=== PATIENT | male | born 1965 | race American Indian/Alaskan Native ===

== ENCOUNTER 2021-03-09 15:30 | Outpatient (RCR) | payer OTHER, SELFPAY ==
[2021-01-05 15:00] VITALS: BP_SYST 115
--- NOTE | 2021-01-05 15:54 | PTOPEVAL ---
PHYSICAL THERAPY EVALUATION AND PLAN OF CARE 01-06-21 Thank you for referring Imtiaz Pate to [facility] for the diagnosis of R shoulder adhesive capsulitis.? He is scheduled to be seen for therapy? 2 x/week for 4 weeks. Please review, sign, date and return this plan of care YEHUDA. I agree with and certify that the following plan of care is medically necessary. Referring Physician Date Attending Provider: Nuria Roberson NP PT Outpatient Evaluation Document 01/05/21 15:00 JOLLY (Rec: 01/05/21 15:54 JOLLY [id number]) Outpatient Past Medical History Past Medical History Source of Past Medical History Patient Neurological History Hx Neurological Disorders No Significant History Cardiovascular History Hx Hypertension Yes: meds Respiratory History Hx COVID-19 Yes: Oct 2019- fever and light symptoms, had vaccine Gastrointestinal History Hx Gastrointestinal Disorders No Significant History Genitourinary History Hx Genitourinary Disorders No Significant History Musculoskeletal History Hx Other Musculoskeletal Disorders Yes: neck pain, R and L shoulder pain Endocrine History Hx Diabetes Yes: meds control HEENT History Hx Other HEENT Disorders Yes: wear glasses; to have stretching of esophagus next week Psychosocial History Hx Anxiety Yes: claustrophobia Evaluation Information Problem Diagnosis R shoulder adhesive capsulitis Onset few years Subjective Information fell about 2-3 years ago, off Query Text:As Reported By Patient/ scooter. 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
--- NOTE | 2021-01-12 15:44 | PCPTNOTE ---
Patient called & cancelled scheduled appointment this date due to being out of town.
[2021-02-02 15:00] VITALS: BP_SYST 90
--- NOTE | 2021-02-02 15:50 | PTOPEVAL ---
PHYSICAL THERAPY RE-EVALUATION AND UPDATED PLAN OF CARE 02-02-21 Refer to the clinical summary below, for the status today, compared to the initial evaluation. He has made improvements, and PT will continue 2x/week for 4 weeks. Please review, sign, date and return this updated plan of care YEHUDA. I agree with and certify that the following plan of care is medically necessary. Referring Physician Date Attending Provider: Nuria Roberson NP Document 02/02/21 15:00 JOLLY (Rec: 02/02/21 15:46 JOLLY [id number]) Assessment Status Re-evaluation Subjective Information Gerson reports: my range is Query Text:As Reported By Patient/ better, still not where need Family to be; playing golf; reaching back with showering still not all way behind back; doing exercises at home OK; Pain Assessment Timing of Pain Assessment Timing of Pain Assessment Assessment Pain Scale Pain Scale Used Numeric (1 - 10) Self Report Pain Assessment Right Shoulder(s) Reported Pain Level 0 Pain Description Sharp,Soreness,Tightness Pain Frequency Chronic,Intermittent Other Pain Description tight in shoulder-posterior shoulder Lowest Pain Intensity 0 Greatest Pain Intensity 7 Other Pain Aggravating Factors pulling in back of shoulder when playing tug-war with dog- no other pain Pain Score Pain Score 0: Self Report Additional Pain Score Comments Quick DASH self assessment functional score of 9% limitation Interventions Used Interventions Used By Clinicians Exercise Pain Relief Interventions Used By Inactivity/Rest Patient Upper Extremity Range of Motion Scapular/ Shoulder Range of Motion Right Shoulder Flexion - Active 135 Shoulder Flexion - Passive 145 Shoulder Abduction - Active 85 Shoulder Abduction - Passive 90 Shoulder Medial Rotation - Active palm to above waist Query Text:Reach Behind the Back Shoulder Lateral Rotation - Active palm to posterior neck Query Text:Reach Behind the Head Scapular/Shoulder Range of Motion increase pain with IR > Comments abduction; reports tightness post scapula with horizontal adduction stretch with R arm across body no pain with elbow flex/ extension Upper Extremity Muscle Strength Testing General Upper Extremity Strength Gross Upper Extremity Strength Comments functional strength testing R UE:
--- NOTE | 2021-03-09 16:04 | PTOPEVAL ---
PHYSICAL THERAPY DISCHARGE 03-09-21 Refer to the clinical summary below, for his status today, compared to the last reevaluation. The goals were achieved except the active ROM of R shoulder flexion and IR motions. He is to continue with his home exercise program and increase the activity level with his R UE. Thank you for referring Imtiaz Pate to [facility].? Please review, sign, date and return this Discharge YEHUDA. I agree with and certify that the following plan of care is medically necessary. Referring Physician Date Attending Provider: Nuria Roberson NP Document 03/09/21 15:25 JOLLY (Rec: 03/09/21 16:04 JOLLY [id number]) Assessment Status Discharge Subjective Information Gerson reports: have more range Query Text:As Reported By Patient/ of motion of his shoulder, Family still problems with reaching behind back; have been doing exercises without any problems ; have not tried throwing a ball yet; agree to d/c PT; Pain Assessment Timing of Pain Assessment Timing of Pain Assessment Assessment Pain Scale Pain Scale Used Numeric (1 - 10) Self Report Pain Assessment Right Shoulder(s) Reported Pain Level 0 Pain Description Dull Pain Frequency Chronic,Intermittent Other Pain Description posterior GH joint Lowest Pain Intensity 0 Greatest Pain Intensity 2 Other Pain Aggravating Factors shoulder abduction Pain Score Pain Score 0: Self Report Upper Extremity Range of Motion Scapular/ Shoulder Range of Motion Right Shoulder Flexion - Active 140 Shoulder Abduction - Active 140 Shoulder Medial Rotation - Active palm to above waist Query Text:Reach Behind the Back Shoulder Lateral Rotation - Active palm to back of neck Query Text:Reach Behind the Head Scapular/Shoulder Range of Motion passive stretch to R shoulder Comments in side lying with scapular mobilization and shoulder circles/sweeping; in supine distraction of GH and IR stretch, after stretching, able to perform IR with palm ~ 2 palm widths above waist Upper Extremity Muscle Strength Testing General Upper Extremity Strength Gross Upper Extremity Strength Comments standing R UE functional strength: shoulder flexion to 140' with 4# hand wt x 10 reps shoulder abduction to 140' with 4# hand wt x 10 reps elbow 10# flexion/extension x
== END 2021-03-10 14:01 | disposition home or self-care (01) ==
LOC: ANHPT 15:30
PROVIDERS: PCP Family Medicine; Visit Provider Nurse Practitioner Family
DX: M75.01 Adhesive capsulitis of right shoulder (principal)
CPT/HCPCS: 97014; 97110; 97140; 97161; G0283

== ENCOUNTER 2023-07-20 03:14 | Day surgery (SDC) | payer OTHER, SELFPAY ==
[2023-07-05 10:08] VITALS: BMI 26.7
[2023-07-20 06:25] VITALS: BP 136/82; PULSE 104; RESP 20; TEMP 36; O2SAT 100
[2023-07-20] MEDS: LACTATED RINGERS 1,000 ML 150 ML IV CONT (06:36)
[2023-07-20 06:54] LABS: Glucose Point of Care 141 mg/dl (65-105)
--- NOTE | 2023-07-20 07:09 | WPDANESEPPF ---
Anes - Initial Pre Proc Eval Procedure: Operation Date: 07/20/23 07:30 Proposed Procedures p Esophagogastroduodenoscopy & Colonoscopy - Karl Balderas MD Date/Time: 07/20/23 07:09 Surgeon: Karl Balderas MD Pre Op Diagnosis: GERD,Anemia,Neoplasm screening Patient Data Age: 57 Gender: M Height: 1.8 m Weight: 84.5 kg Last Vital Signs Temp 96.8 F L 07/20/23 06:25 Pulse 104 H 07/20/23 06:25 Resp 20 07/20/23 06:25 BP 136/82 07/20/23 06:25 Pulse Ox 100 07/20/23 06:25 O2 Del Method Room Air 07/20/23 06:25 Allergies Allergy/AdvReac Type Severity Reaction Status Date / Time No Known Allergies Allergy Verified 07/20/23 06:24 Home Medications Medication Instructions Recorded Confirmed Type blood-glucose meter (Blood Glucose #1 ea 12/21/20 01/29/23 Rx Monitoring kit) blood sugar diagnostic (OneTouch #100 ea 12/22/20 01/29/23 Rx Ultra Test strips) lancets (OneTouch UltraSoft #100 ea 12/22/20 01/29/23 Rx Lancets) aspirin 81 mg tablet,delayed 81 mg PO DAILY #90 tabs 07/17/22 07/05/23 Rx release (Enteric Coated Aspirin) empagliflozin 25 mg tablet 25 mg PO DAILY #90 tabs 12/08/22 07/05/23 Rx (Jardiance) pantoprazole 40 mg tablet,delayed 40 mg PO DAILY 01/29/23 07/05/23 History release metformin 500 mg tablet,extended 2,000 mg PO QPM #360 tabs 04/03/23 07/05/23 Rx release 24 hr cholecalciferol (vitamin D3) 1,250 1,250 mcg PO WEEKLY #12 tabs 05/09/23 07/05/23 Rx mcg (50,000 unit) tablet atorvastatin 20 mg tablet 20 mg PO QHS #90 tabs 05/15/23 07/05/23 Rx lisinopril 20 mg tablet 20 mg PO DAILY #90 tabs 06/14/23 07/05/23 Rx glipizide 5 mg tablet 5 mg PO BID 07/05/23 07/05/23 History multivit with minerals-iron 18 1 tablet PO 07/05/23 History mg-folic ac 400 mcg-vit K 25 mcg tablet (Adults Multivitamin) lorazepam 0.5 mg tablet 0.5 mg PO DAILY PRN anxiety #20 07/09/23 07/20/23 Rx tabs Laboratory Tests 07/20/23 06:21 POC Capillary Glucose 141 H mg/dl (65-105) Patient hx anesthesia problems: none Family hx anesthesia problems: none Results Review: All pre-operative results and documents have been reviewed as part of the pre-operative evaluation. [facility] Past Medical History Medical History Anxiety Essential (primary) hypertension GERD without esophagitis Hyperlipidemia Panic disorder/agoraphobia, agoraphobic avoidnc/panc attck full remssn Sleep apnea Type 2 diabetes mellitus without complications Surgical History Surgical History History of esophageal dilatation (~04/2020) Family History Family History Father Cerebrovascular accident Other Diabetes mellitus Hypertension Social History Social History Smoking status: Never smoker Second hand tobacco smoke exposure: No Alcohol intake: current Alcohol use details: socially maybe 2 times a year Substance use: never Substance use type: does not use Lack of Transportation: No Lack of Food: Never True Current Housing: I Have Housing Concerned About Future Housing: No Difficulty Paying Gas/Electric Bills: No Difficulty Paying for Meds: No Currently Unemployed: No Education: High School Diploma/GED Difficulty w/ Childcare or Family Care: No Living arrangements: with family Occupation/Education: occupation Additional occupation/education comments: sales Gender identity (if verbalized by the patient): Male Sexual Orientation (if Verbalized by the Patient): Straight or Heterosexual Spiritual care concerns: No Agree to blood products: Yes Anes - Eval Final PreProcedure Day of Procedure 07/20/23 07:09 Patient weight: normal Heart: regular rate and rhythm Lungs: clear to ausculta
--- NOTE | 2023-07-20 07:32 | PM.HPGS ---
History of Present Illness History of Present Illness Consent: Risks, benefits, and alternatives have been discussed and questions answered. Patient agrees to proceed with procedure. Chief complaint: GERD,Anemia,Neoplasm screening Narrative: Imtiaz Pate is a 57 year old male with anemia hgb 9, denies overt gib, never had scopes, using pantoprazole Review of Systems Review of Systems: All systems reviewed & are unremarkable except as noted in HPI and below PMFSH Past Medical History Medical History Anxiety Essential (primary) hypertension GERD without esophagitis Hyperlipidemia Panic disorder/agoraphobia, agoraphobic avoidnc/panc attck full remssn Sleep apnea Type 2 diabetes mellitus without complications Surgical History Surgical History History of esophageal dilatation (~04/2020) Family History Family History Father Cerebrovascular accident Other Diabetes mellitus Hypertension Social History Social History Smoking status: Never smoker Second hand tobacco smoke exposure: No Alcohol intake: current Alcohol use details: socially maybe 2 times a year Substance use: never Substance use type: does not use Lack of Transportation: No Lack of Food: Never True Current Housing: I Have Housing Concerned About Future Housing: No Difficulty Paying Gas/Electric Bills: No Difficulty Paying for Meds: No Currently Unemployed: No Education: High School Diploma/GED Difficulty w/ Childcare or Family Care: No Living arrangements: with family Occupation/Education: occupation Additional occupation/education comments: sales Gender identity (if verbalized by the patient): Male Sexual Orientation (if Verbalized by the Patient): Straight or Heterosexual Spiritual care concerns: No Agree to blood products: Yes Meds Home Medications and Allergies Home Medications Medication Instructions Recorded Confirmed Type blood-glucose meter (Blood Glucose #1 ea 12/21/20 01/29/23 Rx Monitoring kit) blood sugar diagnostic (OneTouch #100 ea 12/22/20 01/29/23 Rx Ultra Test strips) lancets (OneTouch UltraSoft #100 ea 12/22/20 01/29/23 Rx Lancets) aspirin 81 mg tablet,delayed 81 mg PO DAILY #90 tabs 07/17/22 07/05/23 Rx release (Enteric Coated Aspirin) empagliflozin 25 mg tablet 25 mg PO DAILY #90 tabs 12/08/22 07/05/23 Rx (Jardiance) pantoprazole 40 mg tablet,delayed 40 mg PO DAILY 01/29/23 07/05/23 History release metformin 500 mg tablet,extended 2,000 mg PO QPM #360 tabs 04/03/23 07/05/23 Rx release 24 hr cholecalciferol (vitamin D3) 1,250 1,250 mcg PO WEEKLY #12 tabs 05/09/23 07/05/23 Rx mcg (50,000 unit) tablet atorvastatin 20 mg tablet 20 mg PO QHS #90 tabs 05/15/23 07/05/23 Rx lisinopril 20 mg tablet 20 mg PO DAILY #90 tabs 06/14/23 07/05/23 Rx glipizide 5 mg tablet 5 mg PO BID 07/05/23 07/05/23 History multivit with minerals-iron 18 1 tablet PO 07/05/23 History mg-folic ac 400 mcg-vit K 25 mcg tablet (Adults Multivitamin) lorazepam 0.5 mg tablet 0.5 mg PO DAILY PRN anxiety #20 07/09/23 07/20/23 Rx tabs Allergies Allergy/AdvReac Type Severity Reaction Status Date / Time No Known Allergies Allergy Verified 07/20/23 06:24 Vital Signs Vital Signs - 24 hr 07/20/23 06:25 Temperature 96.8 F L Pulse Rate 104 H Respiratory Rate 20 Blood Pressure 136/82 Pulse Oximetry 100 Oxygen Delivery Room Air Exam Const: General: comfortable and no acute distress HENMT: Face/Nose/Sinus: Normal nares present Eyes: General: appearance normal, both eyes and all related structures Neck: Neck: no JVD Resp: Auscultation: clear to auscultation bilaterally Cardio: Rate: regular rate Rhythm: regular rhythm GI:
[2023-07-20 08:00] VITALS: BP 99/70; PULSE 93; RESP 15; O2SAT 98
--- NOTE | 2023-07-20 08:00 | SUR.OPER ---
EGD: Start 07:35, End 07:40 Colonoscopy: Start 07:47, End 07:57
[2023-07-20 08:10] VITALS: BP 107/77; PULSE 75; RESP 13; O2SAT 100
[2023-07-20 08:20] VITALS: BP 114/82; PULSE 74; RESP 19; O2SAT 100
[2023-07-20 08:30] VITALS: BP 114/82; PULSE 79; RESP 18; O2SAT 100
[2023-07-20 08:40] VITALS: BP 118/81; PULSE 75; RESP 14; O2SAT 100
== END 2023-07-20 08:43 | disposition home or self-care (01) ==
PROVIDERS: PCP Family Medicine; Visit Provider Internal Medicine Gastroenterology
PROC: 0DJ08ZZ Inspection of Upper Intestinal Tract, Via Natural or Artificial Opening Endoscopic (ICD-10-PCS; CPT 43235; principal; 2023-07-20 07:30)
DX: D50.9 Iron deficiency anemia, unspecified (principal); D12.0 Benign neoplasm of cecum; K64.8 Other hemorrhoids; K29.50 Unspecified chronic gastritis without bleeding; K44.9 Diaphragmatic hernia without obstruction or gangrene; I10 Essential (primary) hypertension; K21.9 Gastro-esophageal reflux disease without esophagitis; E78.5 Hyperlipidemia, unspecified; E11.9 Type 2 diabetes mellitus without complications; G47.30 Sleep apnea, unspecified; F41.9 Anxiety disorder, unspecified; Z79.84 Long term (current) use of oral hypoglycemic drugs; Z79.82 Long term (current) use of aspirin
CPT/HCPCS: 45380; 43239; 82948; 88305; J2704; J7120

== ENCOUNTER 2023-07-27 08:20 | Outpatient (CLI) | payer OTHER, SELFPAY ==
--- NOTE | ~2023-07-27 | CT_ITS ---
CT of the Abdomen and Pelvis: Indication: Other specified disease of intestine Technique: 2.5 mm axial scans were obtained through the abdomen and pelvis following intravenous adm inistration of 100 cc of Omnipaque 350. Dose reduction technique was used on this scan by utilizing a utomated exposure control and iterative reconstruction technique. The dose-length product (DLP) was 6 69.38 mGy-cm. Findings: Scans through the lung bases are unremarkable. The liver, spleen, pancreas, gallbladder, left adrenal gland and kidneys are within normal limits. 1. 4 cm right adrenal nodule present. There are atherosclerotic calcifications of the aorta. No lymphad enopathy. No bowel obstruction or bowel wall thickening. There is no evidence to suggest acute appendicitis. Images through the pelvis were performed. Urinary bladder unremarkable. No pelvic mass seen. No ascit es. Impression: No acute abnormality evident. No GI abnormality evident. 1.4 cm right adrenal nodule, indeterminate. Consider adrenal protocol CT or MR to attempt to confirm adenoma. Reviewed, dictated and finalized at [facility]. Impression: No acute abnormality evident. No GI abnormality evident. 1.4 cm right adrenal nodule, indeterminate. Consider adrenal protocol CT or MR to attempt to confirm adenoma.
[2023-07-27 08:52] LABS: Estimated Glomerular Filt Rate > 60
[2023-07-27 09:39] LABS: Hematocrit 36.9 % (42.0-52.0); Mean Corpuscular HGB Conc 27.1 g/dl (32-36); Mean Corpuscular Hemoglobin 18.1 pg (26-34); Mean Corpuscular Volume 66.7 fl (80-100); Mean Platelet Volume 8.8 fl (7.4-10.4); Platelet Count Result 329 k/mm3 (150-375); Red Blood Count 5.53 M/mm3 (4.6-6.20); Red Cell Distribution Width 23.8 % (11.5-14.5); White Blood Count 4.3 K/mm3 (4.5-10.0)
[2023-07-27 09:49] LABS: Alanine Aminotransferase 19 U/L (6-50); Albumin Level 4.4 g/dL (3.5-5.1); Alkaline Phosphatase 86 U/L (38-126); Anion Gap 10 mmol/L (4-12); Aspartate Amino Transferase 23 U/L (17-59); Bilirubin,Total 0.9 mg/dL (0.2-1.3); Blood Urea Nitrogen 15 mg/dL (9-20); Calcium 9.4 mg/dL (8.4-10.2); Carbon Dioxide 23 mmol/L (22-30); Chloride 107 mmol/L (98-107); Estimated Glomerular Filt Rate > 60; Glucose 107 mg/dL (65-110); Potassium 4.6 mmol/L (3.4-5.0); Sodium 140 mmol/L (137-145)
[2023-07-27 10:19] LABS: Carcinoembryonic Antigen 1.1 ng/mL (0.0-3.0)
== END 2023-07-27 08:21 | disposition home or self-care (01) ==
PROVIDERS: PCP Family Medicine; Visit Provider Internal Medicine Gastroenterology
DX: K63.89 Other specified diseases of intestine (principal); D64.9 Anemia, unspecified; D35.01 Benign neoplasm of right adrenal gland
CPT/HCPCS: 36415; 74177; 80053; 82378; 85027; Q9967

== ENCOUNTER 2024-08-19 09:26 | Outpatient (CLI) | payer OTHER, SELFPAY ==
--- OUTSIDE RECORDS SUMMARY | 2024-08-19 09:44 | XMS_ITS | Clinical Summary ---
Author Organization [facility] Address [address] [place] [address] Care Team Providers Care Regional Engagement Consultant Name Role Phone Akiko Deras MD Primary Care Provider Raymundo Morgan MD Unavailable [phone] Karl Gabriel MD Unavailable + Allergies No known active allergies Medications LORazepam (ATIVAN) 0.5 mg tablet [address] (PROTONIX) 40 mg EC tablet Take 1 tablet (40 mg total) by mouth daily Active lisinopriL (PRINIVIL,ZESTR IL) 20 mg tablet Take 1 tablet (20 mg total) by mouth daily Active cholecalciferol (VITAMIN D-3) 50,000 unit capsule Take 1 capsule (50,000 Units total) by mouth once a week Active aspirin 81 mg enteric coated tablet Take 1 tablet (81 mg total) by mouth daily Active atorvastatin (LIPITOR) 20 mg tablet Take 1 tablet (20 mg total) by mouth daily Active glipiZIDE (GLUCOTROL) 10 mg tabletIndicatio ns:type 2 diabetes mellitus Take 1 tablet (10 mg total) by mouth 2 (two) times a day before breakfast and lunch Active metFORMIN (FORTAMET) 500 mg 24 hr tablet Take 4 tablets (2,000 mg total) by mouth daily with breakfast Active Jardiance 25 mg tablet 4 Active Active Problems Problem Noted Date Diagnosed Date S/P colonoscopy with polypectomy 04/16/2024 Encounters Date Type Department Care Team Description 06/04/2024 Results Follow-Up [facility] Gastroenterology [address] [facility] [address], [address] [place] [address] Stacey Hagen RN Surgical pathology 06/02/2024 7:00 AM CDT - 06/02/2024 7:45 AM CDT Surgery [facility] [address] [place] [phone] Preet Huertas MD ENDO ADD ON COLON REMOVAL HOT BIOPSY 06/02/2024 7:00 AM CDT Anesthesia Event [facility] [address] [place] [phone] Jose Hinds MD 06/02/2024 6:15 AM CDT - 06/02/2024 8:17 AM CDT Hospital Encounter [facility] [address] [place] [address] Preet Huertas MD S/P colonoscopy with polypectomy Discharge Disposition: Discharge to home or self care 05/30/2024 Telephone [facility] Gastroenterology [address] [facility] [address], [address] [place] [address] Stacey Hagen RN Return call from Last 3 Months Surgical History Surgery Date Site/Laterality Comments COLONOSCOPY 07/18/2023 - 08/17/2023 UPPER GASTROINTESTINAL ENDOSCOPY 07/18/2023 - 08/17/2023 Medical History Medical History Date Comments Diabetes mellitus (HCC) Hypertension Anxiety Cecal polyp 07/20/2023 RITCHIE (iron deficiency anemia) Sleep apnea Social History Tobacco Use Types Packs/Day Years Used Date Smoking Tobacco: Never Tobacco Cessation:Counseling Given: Not Answered AUDIT-C Answer Date Recorded Q1: How often do you have a drink containing alcohol? Never 06/02/2024 Q2: How many drinks containi ng alcohol do you have on a typical day when you are drinking? Patient does not drink Q3: How often do you have si x or more drinks on one occasion? Never 06/02/2024 Personal Safety Answer Date Recorded Have you ever been in or are you currently in a harmful physical or emotional relationship or is someone making you feel afraid or unsafe? 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 Gender Identity Not on file Sexual Orientation Not on file Obstetrics History Last Filed Vital Signs Vital Sign Reading Time Taken Comments Blood Pressure 111/87 06/02/2024 7:54 AM CDT Pulse 82 06/02/2024 7:54 AM CDT Temperature 36.1 C (97 F) 06/02/2024 6:47 AM CDT Respiratory Rate 13 06/02/2024 7:54 AM CDT Oxygen Saturation 100% 06/02/2024 7:54 AM CDT Inhaled Oxygen Concentration - - Weight 86.2 kg (190 lb) 06/02/2024 6:47 AM CDT Height 180.3 cm (5' 11) 06/02/2024 6:47 AM CDT Body Mass Index 26.5 06/02/2024 6:47 AM CDT Plan of Treatment Health Maintenance Due Date Last Done Comments Depression Screening 1965 Hepatitis C Screening 1965 Prostate Cancer Screening-PSA 1966 DTaP/Tdap/Td Vaccine (1 - Tdap) 1977 Hepatitis B Screening 1984 Regular Well Visit/Exam 18-64 1984 Zoster Vaccine (1 of 2) 2016 Covid-19 Vaccine (4 - 2023-2 5 season) 2023 03/06/2021, 07/09/2020, 06/11/2020 Influenza Vaccine (Season Ended) 2024 Colon Cancer Screening-Colonoscopy 06/02/2034 06/02/2024, 10/30/2023 Pneumococcal vaccine <65 Aged Out No longer eligible based on patient's age to complete this topic Procedures Procedure Name Priority Date/Time Associated Diagnosis Comments SURGICAL PATHOLOGY Routine 06/02/2024 7: 08 AM CDT S/P colonoscopy with polypectomy COLON REMOVAL SNARE 06/02/2024 7 :00 AM CDT S/P colonoscopy with polypectomy ENDO ADD ON COLON REMOVAL HOT BIOPSY 06/02/2024 7:00 AM CDT S/P colonoscopy with polypectomy COLONOSCOPY 06/02/2024 6:42 AM CDT from Last 3 Months Results * Surgical pathology (06/02/2024 7:08 AM CDT) Tissue specimen (specimen) (Polyp(s), colon/colorectal, esophageal, gastric) 06/02/2024 7:08 AM CDT Tissue specimen (specimen) (Polyp(s), colon/colorectal, esophageal, gastric) 06/02/2024 7:17 AM CDT Narrative PATHOLOGY [facility] - 06/03/2024 4:13 PM CDT [address] [address] Tele: Nini Franklin MD - Deliverer Pharmacy Note to Patients: This report may contain a detailed description of human tissue sent by a health care provider to the laboratory for pathologic evaluation. The content of this report is essential for diagnosis and may provide important critical findings. This information may be unfamiliar to patients to review without a medical professional present. It is advised that the patient review this report in the presence of a health care provider who can answer questions and explain the details. SURGICAL PATHOLOGY REPORT Patient Name: IMTIAZ PATE Address: [address] [place] [address] Gender: M : 1965 (Age: 58) Service: Gastro Location: [facility], Hospital #: [id number] Patient Type: [facility] [place] Taken: 06/02/2024 Received 06/02/2024 Reported: 06/03/2024 Physician(s): Gary Ocampo MD Steven Hunt, M.D. DIAGNOSIS: Colon, cecum, residual polyp, polypectomy: - Tubular adenoma Colon, polyps, polypectomy x3: - Tubular adenomas [facility] [place]/06/03/2024 16:13 Examining Pathologist: George Kang MD, PhD Report Reviewed and Electronically Signed By George Kang MD, PhD SPECIMEN TYPE: A: RESIDUAL CECAL POLYP B: COLON POLYP CLINICAL IMPRESSION AND HISTORY: 58-year-old man for surveillance: Personal history of piecemeal removal of large sessile adenoma on last colonoscopy six months ago. Exam findings: Post mucosa ectopies scar in the cecum. Small area of residual adenoma, removed with hot avulsion. Clips were placed. Three polyps in the sigmoid colon, transverse colon and in the ascending colon, 3-5 mm in size, removed with a cold snare. Resected and retrieved. The examination was otherwise normal on direct and retroflexion views. Internal hemorrhoids. GROSS DESCRIPTION: A. Received in formalin labeled IMTIAZ HERSON and residual cecal polyp are multiple deleon tissue fragments, 2 x 0.3 x 0.2 cm in aggregate. The specimen is filtered and entirely submitted in A1. B. Received in formalin labeled IMTIAZ HERSON and colon polyp are multiple deleon tissue fragments, 2 x 0.4 x 0.3 cm in aggregate. The specimen is filtered and entirely submitted in B1. jxi/06/02/2024 12:52 DMS,JXI MICROSCOPIC DESCRIPTION: Sections of the residual cecal polypectomy specimen demonstrate tubular adenoma without high-grade dysplasia. Sections of the colon polypectomy specimen demonstrate tubular adenomas without high-grade dysplasia. Clerical Data Follows A; 36291 B; [id number] REPORT IMAGES AND/OR SCANNED DOCUMENTS ONLY VIEWABLE IN PDF FORMAT The immunohistochemical test(s) cited in this report, if any, was developed and its performance characteristics determined by [facility]. It has not been cleared or approved by the U.S. Food and Drug Administration. The FDA has determined that such clearance or approval is not necessary. This test is used for clinical purposes. It should not be regarded as investigational or for research. [facility] is certified under the Clinical Laboratory Improvement Amendments of 1988 (CLIA) as qualified to perform high complexity testing. Immunostains were performed on formalin-fixed paraffin embedded tissue using a polymer diaminobenzidine chromogen detection system. Antibodies used may include clone SP1 (rabbit monoclonal, estrogen receptor), clone 1E2 (rabbit monoclonal progesterone receptor), Ki-67 (rabbit monoclonal, 30-9), CD117 (rabbit polyclonal, c-kit), and anti-Her-2/ino (4B5) (rabbit monoclonal primary antibody). In the event that immunohistochemistry or special stains have been performed, attending physician has confirmed appropriateness of controls. Frozen section, operating room consultation, gross examination and dissection, and case sign out may have been performed in part or completely in the following laboratories: [facility], [address] [facility], [place] [address] [facility], [address] [facility], [place] [address]. us Preet Huertas MD LAB PATHOLOGY [facility] [place] Final Result PATHOLOGY [facility] Laboratory Receiving [address] [place] [address] * Colonoscopy (06/02/2024 6:42 AM CDT) Anatomical Region Laterality Modality Other Narrative Procedure Note Preet Huertas MD - 06/02/2024 6:42 AM CDT ENDOSCOPY LAB Patient Name: Imtiaz Pate Procedure Date: 06/02/2024 6:42 AM Admit Type: Outpatient Room: [facility] Date of : 1965 Instrument Name: [id number] Gender: Male Note Status: Finalized Procedure: Colonoscopy Indications: Surveillance: Personal history of piecemeal removalof large sessile adenoma on last colonoscopy 6 monthsago Providers: Preet Huertas M.D. Referring MD: Raymundo Morgan M.D., Akiko Deras M.D. Medicines: Monitored Anesthesia Care Complications: No immediate complications. Estimated Blood Loss: Estimated blood loss: none. Procedure: Pre-Anesthesia Assessment: - Immediately prior to administration ofmedications, the patient was re-assessed for adequacy to receive sedatives. - The risks and benefits of the procedure and the sedation options and risks were discussed with the patient. All questions were answered and informed consent was obtained. The benefits, risks and alternatives of theprocedure and sedation were discussed and informed consentwas obtained. All questions were answered. Please referto the signed informed consent document in the medical record. The scope was passed under direct vision.The Colonoscope was introduced through the anus and advanced to the the cecum, identified byappendiceal orifice and ileocecal valve. The colonoscopy was performed without difficulty. The patient tolerated the procedure well. The quality of the bowel preparation was evaluated using the BBPS (BostonBowel Preparation Scale) with scores of: Right Colon = 3, Transverse Colon = 3 and Left Colon = 3 (entiremucosa seen well with no residual staining, smallfragments of stool or opaque liquid). The total BBPS score equals 9. The bowel preparation used was GoLYTELYvia split dose instruction. Findings: The perianal and digital rectal examinations were normal. A medium post mucosectomy scar was found in the cecum. There was a 5mm island of residual polyp tissue. The polyp was removed using a hot avulsion with forceps. Resection and retrieval were complete. Toprevent bleeding after the polypectomy, two hemostatic clips weresuccessfully placed. Three sessile polyps were found in the sigmoid colon, transversecolon and ascending colon. The polyps were 3 to 5 mm in size. These polyps were removed with a cold snare. Resection and retrieval werecomplete. The exam was otherwise without abnormality on direct and retroflexion views. Internal hemorrhoids were found during retroflexion. The hemorrhoids were Grade II (internal hemorrhoids that prolapse but reduce spontaneously). Impression: - Post mucosectomy scar in the cecum. Small area of residual adenoma, removed with hot avulsion. Clips were placed. - Three 3 to 5 mm polyps in the sigmoid colon, inthe transverse colon and in the ascending colon,removed with a cold snare. Resected and retrieved. - The examination was otherwise normal on directand retroflexion views. - Internal hemorrhoids. Recommendation: - Repeat colonoscopy in 12 months forsurveillance. - No aspirin, ibuprofen, naproxen, or other non-steroidal anti-inflammatory drugs for 10 days after polyp removal. - Do not lift >25 lb for 10 days to decrease riskof bleeding. - Call my nurses Stacey Hagen RN in the GI officeat [phone] for your final pathology results in 7 days. - In the unusual situation that you developabdominal pain, bleeding or other significant problems in the days following this procedure please call my officeat [phone] ([phone]) to speak to my nurses. After hours and evenings please call [phone] speak to the GI fellow information technology security manager. Please tell themthat Dr. Huertas did your procedure and that your were instructed to have the fellow call me or thephysician covering for me to discuss the management of your condition. If you have an urgent problem, please goto the nearest emergency room and have the ER doctorcall my office during the day or [facility] transfer ([phone]) center after hours and weekends to arrange admission or transfer to our facility. - Repeat colonoscopy in 1 year for surveillance. Attending Participation: I personally performed the entire procedure. Electronically signed by Preet Huertas MD Preet Huertas M.D. 06/02/2024 7:24:11 AM This document was signed electronically. Number of Addenda: 0 Note Initiated On: 06/02/2024 6:42 AM Scope Withdrawal Time: 0 hours 9 minutes 58 seconds Scope In: 7:05:11 AM Scope Out: 7:18:06 AM Preet Huertas MD ENDOSCOPY PROCEDUR ES Final Result from Last 3 Months Insurance [employer] CHOICE PLUS Advance Directives For more information, please contact: [phone] * Full Code (Latest Code Status on File) Date Activated Date Inactivated Comments 06/02/2024 6:41 AM 06/02/2024 12:17 PM * Full Code Date Activated Date Inactivated Comments 10/30/2023 9:24 AM 10/30/2023 3:38 PM Care Teams Regional Engagement Consultant Relationship Specialty Start Date End Date Akiko Deras MD [address] [facility] [address] [place] [address] PCP - General Family Practice 08/02/23 Raymundo Morgan MD [phone] [place] [address] Surgeon Colon and Rectal Surgery 08/28/23 Karl Gabriel MD [address] [place] [address] Weather Strip Mechanic Gastroenterology 08/28/23
--- OUTSIDE RECORDS SUMMARY | 2024-08-19 09:44 | XMS_ITS | Referral Summary ---
Author Organization [facility] Address [address] [place] [address] Care Team Providers Care Circulation Representative Name Role Phone Akiko Deras MD Primary Care Provider Raymundo Morgan MD Unavailable [phone] Karl Gabriel MD Unavailable + Encounters Date Type Department Care Team Description 06/04/2024 Results Follow-Up [facility] Gastroenterology [address] [place] [address] Medical Office [address], [address] [place] [address] Stacey Hagen RN Surgical pathology 06/02/2024 7:00 AM CDT - 06/02/2024 7:45 AM CDT Surgery [facility] [address] [place] [address] Preet Huertas MD ENDO ADD ON COLON REMOVAL HOT BIOPSY 06/02/2024 7:00 AM CDT Anesthesia Event [facility] [address] [place] [address] Jose Hinds MD 06/02/2024 6:15 AM CDT - 06/02/2024 8:17 AM CDT Hospital Encounter [facility] [address] [place] [address] Preet Huertas MD S/P colonoscopy with polypectomy Discharge Disposition: Discharge to home or self care 05/30/2024 Telephone [facility] Gastroenterology [address] [facility] [address], [address] [place] [address] Stacey Hagen, DANIE Return call from Last 3 Months Allergies No known active allergies Medications LORazepam [...] Diagnosed Date S/P colonoscopy with polypectomy 04/16/2024 Social History Tobacco Use Types Packs/Day Years [...] on file 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 Gender Identity Not on file Sexual Orientation Not on file Last Filed Vital Signs Vital Sign Reading [...] 06/02/2024 6:47 AM CDT Plan of Treatment Not on file Procedures Procedure Name Priority Date/Time Associated Diagnosis [...] gastric) 06/02/2024 7:17 AM CDT Narrative PATHOLOGY [facility] - 06/03/2024 4:13 PM CDT [address] [address] Tele: Nini Franklin MD - Quantitative Equity Head Note to Patients: This report may contain [...] PATHOLOGY REPORT Patient Name: IMTIAZ PATE Address: [address] [place] [address] Gender: M : 1965 (Age: 58) Service: Gastro Location: [facility], Hospital #: [id number] Patient Type: [facility] SAME DAY SURGERY Taken: 06/02/2024 Received 06/02/2024 Reported: 06/03/2024 Physician(s): Gary Ocampo MD Steven Hunt, M.D. DIAGNOSIS: Colon, cecum, residual polyp, polypectomy: - Tubular adenoma Colon, polyps, polypectomy x3: - Tubular adenomas [facility]/06/03/2024 16:13 Examining Pathologist: George Kang MD, PhD [...] GROSS DESCRIPTION: A. Received in formalin labeled [facility] HERSON and residual cecal polyp are multiple deleon tissue fragments, 2 x 0.3 x 0.2 cm in aggregate. The specimen is filtered and entirely submitted in A1. B. Received in formalin labeled [facility] and colon polyp are multiple deleon tissue fragments, 2 x 0.4 x 0.3 cm in aggregate. The specimen is filtered and entirely submitted in B1. jxi/06/02/2024 12:52 DMS,JXI MICROSCOPIC DESCRIPTION: Sections of the residual cecal polypectomy specimen demonstrate tubular adenoma without high-grade dysplasia. Sections of the colon polypectomy specimen demonstrate tubular adenomas without high-grade dysplasia. Clerical Data Follows A; 94355 B; [id number] REPORT IMAGES AND/OR SCANNED DOCUMENTS ONLY VIEWABLE IN PDF FORMAT The immunohistochemical test(s) cited in this report, if any, was developed and its performance characteristics determined by [facility]ology Department. It has not been cleared or approved by the U.S. Food and Drug Administration. The FDA has determined that such clearance or approval is not necessary. This test is used for clinical purposes. It should not be regarded as investigational or for research. [facility] is certified under the Clinical Laboratory [...] part or completely in the following laboratories: [facility], [address] [place] [address], [address] [place] [address]. Preet Huertas MD LAB PATHOLOGY ORDE EL Final Result PATHOLOGY [facility] Laboratory Receiving [address] [place] [address] * Colonoscopy (06/02/2024 6:42 AM CDT) Anatomical Region Laterality Modality Other Narrative Procedure Note Preet Huertas MD - 06/02/2024 6:42 AM CDT ENDOSCOPY LAB Patient Name: Imtiaz Pate Procedure Date: 06/02/2024 6:42 AM Admit Type: Outpatient Room: [facility] Date of : 1965 Instrument Name: [id number] Gender: Male Note Status: Finalized Procedure: Colonoscopy Indications: Surveillance: Personal history of piecemeal removalof large sessile adenoma on last colonoscopy 6 monthsago Providers: Preet Huertas M.D. Referring MD: Raymundo Morgan M.D., Akiko eDras M.D. Medicines: Monitored Anesthesia Care Complications: No [...] Stacey Hagen RN in the GI officeat [phone] for your final pathology results in 7 days. - In the unusual situation that you developabdominal pain, bleeding or other significant problems in the days following this procedure please call my officeat [phone] ([phone]) to speak to my nurses. After hours and evenings please call [phone] speak to the GI fellow aircraft avionics technician. Please tell monserratthat Dr. Huertas did your procedure and that your were instructed to have the fellow call me or thephysician covering for me to discuss the management of your condition. If you have an urgent problem, please goto the nearest emergency room and have the ER doctorcall my office during the day or [facility] transfer ([phone]) center after hours and weekends to arrange [...] Final Result from Last [address] [facility] CHOICE PLUS [facility] HMO/PPO Address: [facility] [address] [place] [address] [facility] CHOICE PLUS [facility] HMO/PPO Address: [place] [address] Advance Directives For more information, please contact: [phone] * Full Code (Latest Code Status on File) Date Activated Date Inactivated Comments 06/02/2024 6:41 AM 06/02/2024 12:17 PM * Full Code Date Activated Date Inactivated Comments 10/30/2023 9:24 AM 10/30/2023 3:38 PM Care Teams Circulation Representative Relationship Specialty Start Date End Date Akiko Deras MD [address] [facility] [address] [place] [address] PCP - General Family Practice 08/02/23 Raymundo Morgan MD [phone] [place] [address] Surgeon Colon and Rectal Surgery 08/28/23 Karl Gabriel MD [address] [place] [address] Diesel Engine Erector Gastroenterology 08/28/23
[2024-08-19 12:47] LABS: Alanine Aminotransferase 25 U/L (6-50); Albumin Level 4.6 g/dL (3.5-5.1); Alkaline Phosphatase 77 U/L (38-126); Anion Gap 6 mmol/L (4-12); Aspartate Amino Transferase 42 U/L (17-59); Bilirubin,Total 0.9 mg/dL (0.2-1.3); Blood Urea Nitrogen 12 mg/dL (9-20); Calcium 9.9 mg/dL (8.4-10.2); Carbon Dioxide 29 mmol/L (22-30); Chloride 105 mmol/L (98-107); Cholesterol 141 mg/dL (0-200); Estimated Glomerular Filt Rate > 60; Glucose 112 mg/dL (65-110); HDL Direct 42 mg/dL; Potassium 5.2 mmol/L (3.4-5.0); Sodium 140 mmol/L (137-145); Total Protein 7.9 g/dL (6.3-8.2); Triglycerides 159 mg/dL (<150)
[2024-08-19 12:58] LABS: LDL Cholesterol Direct 55 mg/dL
[2024-08-19 18:16] LABS: Hemoglobin A1C 6.4 % (<5.7)
[2024-08-23 03:29] LABS: Immunoglobulin A 259 mg/dL (47-310); TTG IGA AB <1.0 U/mL
== END 2024-08-19 09:27 | disposition home or self-care (01) ==
LOC: ANHGOSHLAB 09:28
PROVIDERS: PCP Family Medicine; Visit Provider Family Medicine
DX: E78.5 Hyperlipidemia, unspecified (principal); I10 Essential (primary) hypertension; E11.9 Type 2 diabetes mellitus without complications; R14.0 Abdominal distension (gaseous); R19.7 Diarrhea, unspecified
CPT/HCPCS: 36415; 80053; 80061; 82784; 83036

== ENCOUNTER 2024-09-17 15:39 | Outpatient (CLI) | payer OTHER, SELFPAY ==
--- OUTSIDE RECORDS SUMMARY | 2024-09-17 15:42 | XMS_ITS | Referral Summary ---
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 Gender Identity Not on file Sexual Orientation [...] Procedure Name Priority Date/Time Associated Diagnosis Comments COLONOSCOPY 06/02/2024 6:42 AM CDT from Last 3 Months or Most Recently Relevant to Health Maintenance Results * Colonoscopy (06/02/2024 6:42 AM CDT) Anatomical Region Laterality Modality Other Narrative Procedure Note Preet Huertas MD - 06/02/2024 6:42 AM CDT ENDOSCOPY LAB Patient Name: Imtiaz Pate Procedure Date: 06/02/2024 6:42 AM Admit Type: Outpatient Room: [facility] 4 Date of : 1965 Instrument Name: [id number] [...] Stacey Hagen RN in the GI officeat [phone] for your final pathology results in 7 days. - In the unusual situation that you developabdominal pain, bleeding or other significant problems in the days following this procedure please call my officeat [phone] ([phone]) to speak to my nurses. After hours and evenings please call [phone] speak to the GI fellow regional company flatbed truck driver. Please tell themthat Dr. Huertas did your procedure and that your were instructed to have the fellow call me or thephysician covering for me to discuss the management of your condition. If you have an urgent problem, please goto the nearest emergency room and have the ER doctorcall my office during the day or [facility] transfer ([phone]) center after hours and weekends to arrange [...] In: 7:05:11 AM Scope Out: 7:18:06 AM us Preet Huertas MD ENDOSCOPY PROCEDUR ES Final Result from Last 3 Months or Most Recently Relevant to Health Maintenance Insurance [facility] [place] [address] [facility] [place] [address] Advance Directives For more information, please contact: [phone] * Full Code (Latest Code Status on File) Date Activated Date Inactivated Comments 06/02/2024 6:41 AM 06/02/2024 12:17 PM * Full Code Date Activated Date Inactivated Comments 10/30/2023 9:24 AM 10/30/2023 3:38 PM Care Teams Transformation Architect Relationship Specialty Start Date End Date Akiko Deras MD [address] [place] [address] PCP - General Family Practice 08/02/23 Raymundo Morgan MD [id number] [place] [address] Surgeon Colon and Rectal Surgery 08/28/23 Karl Gabriel MD [address] [place] [address] Safety Relief Valve Technician Gastroenterology 08/28/23
--- OUTSIDE RECORDS SUMMARY | 2024-09-17 15:42 | XMS_ITS | Clinical Summary ---
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 Referring MD: Raymundo Morgan M.D., Aikko Deras M.D. Medicines: Monitored Anesthesia Care Complications: [...] Stacey Hagen RN in the GI officeat [phone] for your final pathology results in 7 days. - In the unusual situation that you developabdominal pain, bleeding or other significant problems in the days following this procedure please call my officeat [phone] ([phone]) to speak to my nurses. After hours and evenings please call [phone] speak to the GI fellow sulfonation equipment operator. Please tell themthat Dr. Huertas did your procedure and that your were instructed to have the fellow call me or thephysician covering for me to discuss the management of your condition. If you have an urgent problem, please goto the nearest emergency room and have the ER doctorcall my office during the day or [facility] transfer ([phone]) center after hours and weekends to arrange [...] Most Recently Relevant to Health Maintenance Insurance [facility] Address: [place] [address] [facility] Address: [place] [address] Advance Directives For more information, please contact: [phone] * Full Code (Latest Code Status on File) Date Activated Date Inactivated Comments 06/02/2024 6:41 AM 06/02/2024 12:17 PM * Full Code Date Activated Date Inactivated Comments 10/30/2023 9:24 AM 10/30/2023 3:38 PM Care Teams Mold Blower Relationship Specialty Start Date End Date Akiko Deras MD [address] [place] [address] [place] [phone] (Work) PCP - General Family Practice 08/02/23 Raymundo Morgan MD [phone] [place] [address] Surgeon Colon and Rectal Surgery 08/28/23 Karl Gabriel MD [address] [place] [address] Filter Washer And Presser Gastroenterology 08/28/23
--- OUTSIDE RECORDS SUMMARY | 2024-09-17 15:42 | XMS_ITS | Continuity of Care Document ---
Author Organization [facility] Address [address] [place] [address] [place] [address] Phone Care Team Providers Care Receiving Clerk Name Role Phone Papa Cornell MD Unavailable Unavailable Advance Directives Directive Yes / No Effective Date File Name No Information Encounters Encounter Description Practice Location Reason(s) For Visit Diagnoses Date Provider Providers Copied on Encounter [facility], [address] [place], [id number], [place] tel:[phone] [facility] No Information [facility]. [address] [place], [id number], [place]. tel:[phone] Family History Family Member Type Diagnosis Age At Onset No Information Payers Payer name Insurance type Covered republican ID Authoriza tion(s) No Information Social History Type Description Quantity Date Captured Comments Sex Male Smoking Status No Information Chief Complaint And Reason For Visit No Information Plan Of Treatment Date Type Action Status No Information History Of Present Illness Encounter Date Complaint History Of Prese nt Illness No Information Instructions Date Instruction Additional Infor mation No Information Assessments Type Assessment Date No Information
--- OUTSIDE RECORDS SUMMARY | 2024-09-17 15:43 | XMS_ITS | Data Portability ---
Author Organization [place] [facility] [place] [employer], Main Office Address [address] [place] [address] Assessment No assessment recorded. Plan of Treatment Reminders Order Date Submit Date Provider Last Modified By Organization Details Last Modified Time Details Appointments Establis hed Patient 15 2024 10:15A M Balbina Gee MD Not available Not available Not available Lab None recorded . Referral None recorded . Procedures None recorded . Surgeries None recorded . Imaging None recorded . Medication Orders pantopra zole 40 mg tablet,d elayed release 2023 024 [id number], [address], [place], [id number], 01/02/2024 11:39:57 pantopra zole 40 mg tablet,d elayed release 2022 023 [id number], [address], [place], [id number], 12/13/2022 16:18:53 Patient TargetsNo targets recorded. Patient Instructions Encounter Date Encounter Id Patient Instructions Last Modified By Organization Details Last Modified Time 12/13/2022 [id number] REFLUX DIET . [email or web address] Not available 12/13/2022 16:10:27 PT WITH GERD DOING WELL WITH PANTOPRAZOLE 40 MG DAILY . CONTINUE SAME . F/U IN 12 MTHS . [email or web address] Not available 12/13/2022 16:18:50 01/02/2024 [id number] REFLUX DIET Not available 1 11:37:39 PT WITH STABLE GERD . CONT PANTOPRAZOLE 40 MG DAILY . F/U IN 1 YR . [email or web address] Not available 01/02/2024 11:39:24 Reason for Referral None Reported. Problems Name Problem SNOMED Code Status Onset Date Resolution Date Notes Provider Name and Address Organization Details Recorded Time Gastroesophage al reflux disease 404833408 Active 2022 BENIGNO Hodges, [place] [facility] [place] [facility] 3 11:08:20 Problem Notes None recorded. Medical Equipment None Reported. Allergies No known drug allergies Medications Name Sig Start Date Stop Date Status Note LastModified by Organization Details LastModified Time Prescription - Renewal 01/01 completed Not Available Not Available Not Available binaxnow covid-19 ag card home test kit 12/13 completed Not Available Not Available Not Available atorvastatin 20 mg tablet active Not Available Not Available Not Available triazolam 0.25 mg tablet active Not Available Not Available Not Available hydrocodone 5 mg-acetaminop hen 325 mg tablet 12/13 completed Not Available Not Available Not Available glipizide ER 10 mg tablet, extended release 24 hr active Not Available Not Availabl e Not Available lisinopril 20 mg tablet active Not Available Not Available No t Available aspirin 81 mg tablet,delaye d release active Not Available Not Available No t Available amoxicillin 500 mg tablet 01/01 completed Not Available Not Available Not Available lorazepam 0.5 mg tablet active Not Available Not Available No t Available doxycycline monohydrate 100 mg capsule 12/13 completed Not Available Not Available Not Available pantoprazole 40 mg tablet,delaye d release Take 1 tablet every day by oral route before meals for 90 days, for GERD. active Not Available Not Available No t Available nystatin-tria mcinolone 100,000 unit/g-0.1 % topical cream 12/13 completed Not Available Not Available Not Available clobetasol 0.05 % topical ointment 12/13 completed Not Available Not Available Not Available metformin ER 500 mg tablet,extend ed release 24 hr active Not Available Not Available Not Available glipizide 5 mg tablet 01/01 completed Not Available Not Available Not Available GaviLyte-G 236 gram-22.74 gram-6.74 gram-5.86 gram oral solution 01/01 completed Not Available Not Available Not Available Jardiance 25 mg tablet active Not Available Not Available No t Available Vitals Date Recorded Body height Body mass index (BMI) Body weight Heart rate Oxygen saturation Oxygen saturation in Arterial blood by Pulse oximetry Systolic blood pressure Diastolic blood pressure Provider Name and Address Organization Details Last Updated DateTime 3 182.88 cm 27.1 kg/m2 77339.4 7 g 106 /min 98 % 98 % 132 mm[Hg] 70 mm[Hg] BENIGNO Hodges [facility] 3 16:11:14 Date Recorded Body height Heart rate Oxygen saturation Oxygen saturation in Arterial blood by Pulse oximetry Body mass index (BMI) Body weight Systolic blood pressure Diastolic blood pressure Provider Name and Address Organization Details Last Updated DateTime 4 182.88 cm 104 /min 99 % 99 % 26.3 kg/m2 16365.9 2 g 130 mm[Hg] 72 mm[Hg] BENIGNO Hodges [facility] 4 11:06:39 Social History None recorded. Functional Status Question Answer Note LastModified by Organizat ion Details LastModified Time What is your level of alcohol consumption? Occasional [email or web address] Information not available 12/13/2022 Mental Status None recorded. Family History Relationship Description Onset Age of this Age Resolved Age Notes LastModified by Organization Details LastModified Time Father No current problems or disability [email or web address] Not available 12/13 16:13:17 Mother No current problems or disability [email or web address] Not available 12/13 16:13:17 Medical History Condition Response DIABETES, TYPE Y HYPERTENSION Y Past Encounters Encounter ID Performer Location Encounter Start Date Encounter Closed Date Diagnosis/Indication Diagnosis SNOMED-CT Code Diagnosis ICD10 Code Diagnosis Note [id number] Balbina Gee MD [facility] General Surgery [address] [facility] [address] [facility] [address] [address] 12/13/2022 16:06:30 12/13/2022 16:50:17 Gastroesophageal reflux disease 311330448 K21.9 [id number] Balbina Gee MD [facility] General Surgery [address] [facility] [facility] [address] [place] [address] 01/02/2024 11:05:27 01/02/2024 11:35:39 Gastroesophageal reflux disease 926794824 K21.9 Health Concerns Section Related Observation LastModified by Organization Detai ls LastModified Time None Recorded Concern Status LastModified by Organization Details LastModified Time None Recorded Advance Directives Directive None Recorded Payers Insurance Date Sequence Insurance Name Policy Number Policy Randolph Covered Member ID Randolph Member ID Guarantor Name 01/09/2024 1 [facility] [id number] Imtiaz Pate [id number] Imtiaz Pate 01/02/2024 1 [employer] [facility] (PPO) [id number] Imtiaz Pate [id number] Imtiaz Pate Notes Date Note Type Note Provider Name and Address Organization Details Recorded Time 12/13/2022 text/html IMTIAZ WAS SEEN IN THE OFFICE TODAY FOR A F/U. TODAY HE REPORTS THAT HE IS DOING WELL . Balbina Gee MD [address], [facility] [address], [place], [address], [employer] [facility] 12/13/2022 16:19:16 01/02/2024 text/html PT WAS SEEN IN THE OFFICE TODAY FOR A F/U . PT HAS GERD AND DOING WELL. Balbina Gee MD [address], [address], [place], [address], [employer] [facility] 01/02/2024 11:39:52
[2024-09-17 18:57] LABS: Anion Gap 10 mmol/L (4-12); Blood Urea Nitrogen 13 mg/dL (9-20); Calcium 9.1 mg/dL (8.4-10.2); Carbon Dioxide 27 mmol/L (22-30); Chloride 101 mmol/L (98-107); Estimated Glomerular Filt Rate > 60; Glucose 219 mg/dL (65-110); Potassium 4.3 mmol/L (3.4-5.0); Sodium 138 mmol/L (137-145)
== END 2024-09-17 15:40 | disposition home or self-care (01) ==
LOC: ANHGOSHLAB 15:41
PROVIDERS: PCP Family Medicine; Visit Provider Family Medicine
DX: E87.5 Hyperkalemia (principal)
CPT/HCPCS: 36415; 80048

== ENCOUNTER 2025-03-02 09:24 | Outpatient (CLI) | payer OTHER, SELFPAY ==
[2025-03-02 11:12] LABS: Hematocrit 50.4 % (42.0-52.0); Hemoglobin 16.3 g/dL (14.0-18.0); Immature Granulocyte Percent A 0.4 % (0-0.5); Lymphocytes Absolute Auto 1.12 K/mm3 (0.9-3.2); Mean Corpuscular HGB Conc 32.3 g/dl (32-36); Mean Corpuscular Hemoglobin 27.8 pg (26-34); Mean Corpuscular Volume 85.9 fl (80-100); Nucleated Red Blood Cells Absolute Auto 0.000 K/mm3 (0.0-0.012); Nucleated Red Blood Cells Perc 0.0 % (0.0-0.2); Platelet Count Result 251 k/mm3 (150-375); Red Blood Count 5.87 M/mm3 (4.6-6.20); White Blood Count 4.7 K/mm3 (4.5-10.0)
[2025-03-02 11:22] LABS: Alanine Aminotransferase 33 U/L (6-50); Albumin Level 4.6 g/dL (3.5-5.1); Alkaline Phosphatase 93 U/L (38-126); Anion Gap 6 mmol/L (4-12); Aspartate Amino Transferase 37 U/L (17-59); Bilirubin,Total 1.3 mg/dL (0.2-1.3); Blood Urea Nitrogen 14 mg/dL (9-20); Calcium 9.8 mg/dL (8.4-10.2); Carbon Dioxide 29 mmol/L (22-30); Chloride 103 mmol/L (98-107); Cholesterol 129 mg/dL (0-200); Estimated Glomerular Filt Rate > 60; Glucose 149 mg/dL (65-110); HDL Direct 41 mg/dL; Potassium 5.3 mmol/L (3.4-5.0); Sodium 138 mmol/L (137-145); Total Protein 8.4 g/dL (6.3-8.2); Triglycerides 172 mg/dL (<150)
[2025-03-02 11:41] LABS: MALB Creatinine Ratio 9.2 mg/g (0-30)
[2025-03-02 11:59] LABS: Thyroid Stimulating Hormone Reflex 1.170 uIU/mL (0.465-4.68)
[2025-03-02 12:03] LABS: Prostate Specific Antigen 0.9 ng/mL (< OR = 4.0)
[2025-03-02 12:22] LABS: Vitamin B12 594.0 pg/mL (239-931)
[2025-03-02 12:39] LABS: Hemoglobin A1C 6.9 % (<5.7)
== END 2025-03-02 09:25 | disposition home or self-care (01) ==
LOC: ANHGOSHLAB 09:24
PROVIDERS: PCP Family Medicine; Visit Provider Family Medicine
DX: E11.9 Type 2 diabetes mellitus without complications (principal); E53.8 Deficiency of other specified B group vitamins; Z00.00 Encounter for general adult medical examination without abnormal findings; E78.5 Hyperlipidemia, unspecified; E55.9 Vitamin D deficiency, unspecified; I10 Essential (primary) hypertension; Z12.5 Encounter for screening for malignant neoplasm of prostate
CPT/HCPCS: 36415; 80053; 80061; 82043; 82306; 82607; 83036; 84153; 84443; 85025; G0103

== ENCOUNTER 2025-03-02 09:48 | Outpatient (CLI) | payer OTHER, SELFPAY ==
--- NOTE | ~2025-03-02 | XR_ITS ---
EXAMINATION: XR knee LT min 4V, XR knee RT min 4V DATE: 03/02/2025 10:14 INDICATION: Chronic bilateral knee pain TECHNIQUE: 1. Weight bearing anteroposterior and Hector, sunrise, and flexed lateral views of the right knee were obtained 2. Weight bearing anteroposterior and Hector, sunrise, and flexed lateral views of the left knee were obtained COMPARISON: None. FINDINGS: Right knee: Alignment is normal. No fracture. Joint spaces appear normal in all 3 compartments. Tiny marginal osteophytes along the patella. Minimal right knee joint effusion at the suprapatellar pouch. Soft tissues are otherwise unremarkable. Left knee: Alignment is normal. No fracture. Joint spaces appear normal in all 3 compartments. Tiny patellar marginal osteophytes. Small left knee joint effusion at the suprapatellar pouch. Soft tissues are otherwise unremarkable. IMPRESSION: 1. Minimal bilateral patellofemoral osteoarthritis. No acute osseous abnormality. 2. Normal right and small left knee joint effusions. Reviewed, dictated and finalized at location A. N EXPORT ACCOUNT MANAGER IMPRESSION: 1. Minimal bilateral patellofemoral osteoarthritis. No acute osseous abnormalit y. 2. Normal right and small left knee joint effusions.
--- NOTE | ~2025-03-02 | US_ITS ---
EXAMINATION: US thyroid DATE: 03/02/2025 09:59 INDICATION: Goiter TECHNIQUE: Multiple ultrasound images of the thyroid were obtained. COMPARISON: None. FINDINGS: The right thyroid lobe measures 4.9 x 2.2 x 2.1 cm. The left thyroid lobe measures 4.3 x 1.9 x 1.7 cm. There is normal echotexture and echogenicity throughout the thyroid gland. No discrete nodules identified. Normal vascular flow is present. IMPRESSION: 1. Normal size thyroid gland. 2. No discrete or suspicious nodules. Reviewed, dictated and finalized at location A. RVISOR ASSEMBLING
== END 2025-03-02 09:49 | disposition home or self-care (01) ==
PROVIDERS: PCP Family Medicine; Visit Provider Family Medicine
DX: M25.561 Pain in right knee (principal); M25.562 Pain in left knee; G89.29 Other chronic pain; E04.9 Nontoxic goiter, unspecified
CPT/HCPCS: 73564; 76536